=== PATIENT | male | born 1995 | race Caucasian/White ===

== ENCOUNTER 2023-11-11 13:55 | Outpatient (CLI) | payer BC, MEDICAID | END 2023-11-11 23:59 | disposition home or self-care (01) | LOC: RAD 13:55 | PROVIDERS: ATTEND Internal Medicine Infectious Disease | DX: H70.10 Chronic mastoiditis, unspecified ear (principal) | CPT/HCPCS: 70480 ==

== ENCOUNTER 2024-02-15 19:02 | Emergency (ER) | payer BC, MEDICAID ==
[~2024-02-15] VITALS: Ht 185.4 cm; Wt 65.9 kg
[2024-02-15 19:20] VITALS: BP 124/87; PULSE 106; RESP 29; O2SAT 97
[2024-02-15 19:38] LABS: BASOPHILS % (AUTO) 0.2 % (0-1); EOSINOPHILS % (AUTO) 0.2 % (0-6); HEMATOCRIT 32.4 % (42.0-52.0); HEMOGLOBIN 10.4 g/dl (14.0-17.9); LYMPHOCYTES # (AUTO) 3.5 X10'3 (1.1-4.8); LYMPHOCYTES % (AUTO) 24.1 % (21-51); MEAN CORPUSCULAR HEMOGLOBIN 31.8 PG (27.0-31.0); MEAN CORPUSCULAR HGB CONC 32.2 g/dL (33.0-36.5); MEAN PLATELET VOLUME 7.5 FL (7.4-10.4); MONOCYTES # (AUTO) 1.1 X10'3 (0-0.9); MONOCYTES % (AUTO) 7.3 % (2-12); NEUTROPHILS % (AUTO) 68.2 % (42-75); PLATELET COUNT 368 X10'3 (140-440); RED BLOOD COUNT 3.27 X10'6 (4.70-6.10); RED CELL DISTRIBUTION WIDTH 20.2 % (11.5-14.5); WHITE BLOOD COUNT 14.7 X10'3 (4.5-11.0)
[2024-02-15 19:54] LABS: ABG BASE EXCESS 6.8 mmol/L (-2.0-2.0); ABG HCO3 33.5 mmol/L (22.0-26.0); ABG OXYGEN SATURATION 98.9 % (94-97); ABG PCO2 (T) 58.1 mmHg (35.0-48.0); ABG PH (T) 7.377 (7.340-7.440); ABG PO2 (T) 145.1 mmHg (75.0-100.0); ALLEN'S TEST Modified; FCOHb 1.1 % (0.0-3.9); FHHb 1.1 % (0.0-5.0); FMetHb 0.4 % (0.0-1.5); FO2Hb 97.4 % (94-97); MODE CPAP; PATIENT TEMPERATURE 36.9; PEEP 5 cm H2O; TOTAL HEMOGLOBIN 11.3 G/dl (14.0-17.9)
[2024-02-15 19:56] LABS: ALBUMIN 3.4 G/DL (3.4-5.0); ANION GAP 5 (8-16); BLOOD UREA NITROGEN 17 MG/DL (7-18); BUN/CREATININE RATIO 32.7 (10.0-20.0); CALCIUM 10.2 MG/DL (8.5-10.1); CHLORIDE 102 MMOL/L (99-107); CREATININE 0.52 MG/DL (0.60-1.10); GLUCOSE 109 MG/DL (70-104); MAGNESIUM 1.7 MG/DL (1.5-2.4); POTASSIUM 4.4 MMOL/L (3.5-5.1); PRO BRAIN NATRIURETIC PEPTIDE 73 PG/ML (0-125); SODIUM 142 MMOL/L (135-145); TOTAL CARBON DIOXIDE 35.3 MMOL/L (24-32); eCRCL 195 ML/MIN; eGFR > 90 ML/MIN
[2024-02-15] MEDS: CefTRIAXone/D5W-Rocephin 1gm 50 ML IV ONE (20:02)
[2024-02-15] MEDS: normal saline 1000ml 1,000 ML IV ONE (20:05)
[2024-02-15 20:11] LABS: ANISOCYTOSIS 3+; PLATELET ESTIMATE NORMAL; STOMATOCYTES 1+
[2024-02-15] MEDS ORDERED: iohexol 350MG/ML 100ml bottle IV ONE (20:28)
[2024-02-15] MEDS: diazepam inj 5 MG/ML inj. IV ONE (20:37)
[2024-02-15 21:39] VITALS: BP 147/94; PULSE 120; RESP 37; O2SAT 94
[2024-02-15] MEDS: ondansetron/PF 4mg/2ml inj IV ONE (21:47)
[2024-02-15] MEDS: OLANZapine **IM** 10 mg inj. IM ONE (22:32)
[2024-02-15] MEDS: azithromycin/NS 500mg/250ml 250 ML IV ONE (22:41)
[2024-02-15] MEDS: HYDROmorphone inj. 0.5 MG/0.5 ML DISP.SYRIN IV ONE (23:07)
[2024-02-15 23:11] VITALS: BP 103/60; PULSE 122; RESP 28; O2SAT 95
[2024-02-16] MEDS: acetaminophen 1,000mg/100ml IV 100 ML IV ONE (00:06)
[2024-02-16] MEDS: HYDROmorphone 1 mg/ml syringe IV ONE (00:46)
[2024-02-16 01:22] VITALS: BP 103/58; PULSE 115; RESP 24; O2SAT 97
[2024-02-16 03:07] VITALS: PULSE 111; RESP 21; O2SAT 94
[2024-02-16 04:03] VITALS: BP 112/66
[2024-02-16 05:15] VITALS: PULSE 117; RESP 26; TEMP 98.7; O2SAT 93
== END 2024-02-16 05:18 | disposition hospice, inpatient (51) ==
LOC: ER 19:02
DX: J96.00 Acute respiratory failure, unspecified whether with hypoxia or hypercapnia (principal); J18.9 Pneumonia, unspecified organism; Z88.8 Allergy status to other drugs, medicaments and biological substances; Z88.2 Allergy status to sulfonamides
CPT/HCPCS: 36415; 36600; 71045; 71275; 80048; 82803; 83605; 83735; 83880; 84145; 85008; 85018; 85025; 87040; 87070; 93005; 94002; 96365; 96366; 96367; 96372; 96375; 96376; 99291; J0131; J0456; J0696; J1170; J2405; J3360; J3490; J7030; Q9967; 94760; A6213

== ENCOUNTER 2024-03-09 00:40 | Emergency (ER) | payer BC, MEDICAID ==
[2024-03-09] VITALS (11 sets, daily range): BP systolic 99–138; BP diastolic 56–97; PULSE 122–142; RESP 16–21; TEMP 99.4; O2SAT 91–100
[~2024-03-09] VITALS: Ht 185.4 cm; Wt 55.4 kg
[2024-03-09 01:12] LABS: BASOPHILS % (AUTO) 0.1 % (0-1); EOSINOPHILS % (AUTO) 0.1 % (0-6); HEMATOCRIT 36.7 % (42.0-52.0); HEMOGLOBIN 11.7 g/dl (14.0-17.9); LYMPHOCYTES # (AUTO) 0.6 X10'3 (1.1-4.8); LYMPHOCYTES % (AUTO) 3.9 % (21-51); MEAN CORPUSCULAR HEMOGLOBIN 31.5 PG (27.0-31.0); MEAN CORPUSCULAR HGB CONC 31.9 g/dL (33.0-36.5); MEAN CORPUSCULAR VOLUME 98.8 FL (78-98); MEAN PLATELET VOLUME 7.7 FL (7.4-10.4); MONOCYTES # (AUTO) 0.9 X10'3 (0-0.9); MONOCYTES % (AUTO) 6.4 % (2-12); NEUTROPHILS # (AUTO) 13.3 X10'3 (1.8-7.7); NEUTROPHILS % (AUTO) 89.5 % (42-75); PLATELET COUNT 323 X10'3 (140-440); RED BLOOD COUNT 3.71 X10'6 (4.70-6.10); RED CELL DISTRIBUTION WIDTH 16.2 % (11.5-14.5); WHITE BLOOD COUNT 14.8 X10'3 (4.5-11.0)
[2024-03-09 01:20] LABS: ABG HCO3 36.8 mmol/L (22.0-26.0); ABG OXYGEN SATURATION 87.9 % (94-97); ABG PCO2 (T) 58.5 mmHg (35.0-48.0); ABG PH (T) 7.414 (7.340-7.440); ABG PO2 (T) 52.9 mmHg (75.0-100.0); ALLEN'S TEST Modified; FCOHb 0.3 % (0.0-3.9); FHHb 12.1 % (0.0-5.0); FMetHb 0.1 % (0.0-1.5); FO2Hb 87.5 % (94-97); MODE cmv prvc; PATIENT TEMPERATURE 36.4; PEEP 5 cm H2O; RESPIRATORY RATE 16 b/min; TIDAL VOLUME 350 mL; TOTAL HEMOGLOBIN 12.5 G/dl (14.0-17.9)
[2024-03-09 01:34] LABS: ALBUMIN 3.2 G/DL (3.4-5.0); ANION GAP 2 (8-16); BLOOD UREA NITROGEN 19 MG/DL (7-18); BUN/CREATININE RATIO 41.3 (10.0-20.0); CALCIUM 10.6 MG/DL (8.5-10.1); CHLORIDE 98 MMOL/L (99-107); CREATININE 0.46 MG/DL (0.60-1.10); GLUCOSE 165 MG/DL (70-104); MAGNESIUM 1.6 MG/DL (1.5-2.4); PRO BRAIN NATRIURETIC PEPTIDE 65 PG/ML (0-125); SODIUM 143 MMOL/L (135-145); eCRCL 186 ML/MIN; eGFR > 90 ML/MIN
[2024-03-09 01:42] LABS: TOTAL CARBON DIOXIDE 42.9 MMOL/L (24-32)
[2024-03-09] MEDS ORDERED: iohexol 350MG/ML 100ml bottle IV ONE (01:50)
[2024-03-09] MEDS: CefTRIAXone/D5W-Rocephin 1gm 50 ML IV ONE (01:53)
[2024-03-09] MEDS: diazepam inj 5 MG/ML inj. IV ONE ×4 (02:06→16:37)
[2024-03-09] MEDS: azithromycin/NS 500mg/250ml 250 ML IV ONE (02:21)
[2024-03-09 04:14] LABS: ABG BASE EXCESS 10.6 mmol/L (-2.0-2.0); ABG HCO3 38.5 mmol/L (22.0-26.0); ABG OXYGEN SATURATION 98.8 % (94-97); ABG PH (T) 7.369 (7.340-7.440); ABG PO2 (T) 149.2 mmHg (75.0-100.0); ALLEN'S TEST Modified; FCOHb 0.3 % (0.0-3.9); FHHb 1.2 % (0.0-5.0); FMetHb 0.2 % (0.0-1.5); FO2Hb 98.3 % (94-97); MODE CMV PRCV IT 0.9; PATIENT TEMPERATURE 36.6; PEEP 8 cm H2O; RESPIRATORY RATE 18 b/min; TIDAL VOLUME 350 mL; TOTAL HEMOGLOBIN 12.2 G/dl (14.0-17.9)
[2024-03-09] MEDS: normal saline 1000ml 1,000 ML IV ONE (05:25)
[2024-03-09] MEDS: acetaminophen 1,000mg/100ml IV 100 ML IV SCH (06:27)
[2024-03-09] MEDS: ketorolac tromethamine 15mg/ml inj. IV ONE (08:17)
[2024-03-09] MEDS: normal saline 1000ML IV soln IVB ONE (08:17)
[2024-03-09] MEDS: vancomycin/NS 1 GM ADD-VANTAGE 250 ML IV ONE (10:06)
[2024-03-09] MEDS: HYDROmorphone 1 mg/ml syringe IV ONE ×3 (10:07→16:37)
[2024-03-09 15:31] LABS: BILIRUBIN,URINE SMALL (Neg); CLARITY,URINE CLEAR (Clear); COLOR,URINE YELLOW (Yellow); GLUCOSE, URINE NEGATIVE (Neg); KETONES,URINE NEGATIVE (Neg); LEUKOCYTE ESTERASE ,URINE TRACE (Neg); NITRITES, URINE NEGATIVE (Neg); OCCULT BLOOD,URINE NEGATIVE (Neg); PROTEIN,URINE TRACE mg/dl (Neg); UROBILINOGEN,URINE 0.2 E.U/dL (0.2-1.0)
[2024-03-09 15:33] LABS: UA COLLECTION TYPE NON-SPECIFIED
[2024-03-09 15:52] LABS: BACTERIA,URINE 2+ /HPF (Neg); MUCUS STRANDS MODERATE /LPF (Neg); SQUAMOUS EPITHELIAL CELL,UR FEW /LPF (FEW)
== END 2024-03-09 17:03 | disposition short-term general hospital (02) ==
LOC: ER 00:41
DX: A41.9 Sepsis, unspecified organism (principal); Z20.822 Contact with and (suspected) exposure to COVID-19; J15.8 Pneumonia due to other specified bacteria; Z88.8 Allergy status to other drugs, medicaments and biological substances; Z98.890 Other specified postprocedural states
CPT/HCPCS: 36415; 36600; 71045; 80048; 81001; 82803; 82948; 83605; 83735; 83880; 84145; 84484; 85018; 85025; 87040; 87070; 87077; 87088; 87186; 87811; 93005; 94002; 96361; 96365; 96367; 96375; 96376; 99291; 99292; J0131; J0456; J0696; J1170; J1885; J3360; J3370; J7030; 94760; 96366; 96368; A6590; Q9967

== ENCOUNTER 2024-04-01 16:40 | Inpatient (IN) | payer BC, MEDICAID ==
[~2024-04-01] VITALS: Ht 190.5 cm; Wt 52.1 kg
[2024-04-01] MEDS ORDERED: metroNIDAZOLE-Flagyl 750mg/NS 150 ML IV STA (16:49)
[2024-04-01] MEDS ORDERED: cefepime 2g/NS 100ml ADVANTAGE 100 ML IV ONE (16:50)
[2024-04-01 17:09] LABS: BASOPHILS % (AUTO) 0.1 % (0-1); EOSINOPHILS % (AUTO) 0.1 % (0-6); HEMATOCRIT 31.8 % (42.0-52.0); HEMOGLOBIN 10.4 g/dl (14.0-17.9); LYMPHOCYTES # (AUTO) 0.6 X10'3 (1.1-4.8); LYMPHOCYTES % (AUTO) 5.8 % (21-51); MEAN CORPUSCULAR HGB CONC 32.7 g/dL (33.0-36.5); MEAN CORPUSCULAR VOLUME 94.8 FL (78-98); MEAN PLATELET VOLUME 8.1 FL (7.4-10.4); MONOCYTES # (AUTO) 0.6 X10'3 (0-0.9); MONOCYTES % (AUTO) 6.2 % (2-12); NEUTROPHILS # (AUTO) 8.6 X10'3 (1.8-7.7); NEUTROPHILS % (AUTO) 87.8 % (42-75); PLATELET COUNT 213 X10'3 (140-440); RED BLOOD COUNT 3.36 X10'6 (4.70-6.10); RED CELL DISTRIBUTION WIDTH 15.3 % (11.5-14.5); WHITE BLOOD COUNT 9.7 X10'3 (4.5-11.0)
[2024-04-01 17:13] VITALS: BP 100/69; PULSE 109; RESP 20; O2SAT 94
[2024-04-01 17:19] LABS: ALBUMIN 2.8 G/DL (3.4-5.0); BLOOD UREA NITROGEN 9 MG/DL (7-18); BUN/CREATININE RATIO 19.6 (10.0-20.0); CALCIUM 10.6 MG/DL (8.5-10.1); CHLORIDE 94 MMOL/L (99-107); CREATININE 0.46 MG/DL (0.60-1.10); GLUCOSE 265 MG/DL (70-104); SODIUM 139 MMOL/L (135-145); eCRCL 173 ML/MIN; eGFR > 90 ML/MIN
[2024-04-01 17:26] LABS: ABG BASE EXCESS 18.6 mmol/L (-2.0-2.0); ABG HCO3 48.2 mmol/L (22.0-26.0); ABG OXYGEN SATURATION 94.8 % (92-98.5); ABG PCO2 (T) 88.8 mmHg (35.0-48.0); ABG PO2 (T) 75.6 mmHg (75.0-100.0); ALLEN'S TEST POSITIVE; FCOHb 0.3 % (0.5-1.5); FHHb 5.2 % (0.0-5.0); FMetHb 0.1 % (0.0-1.5); FO2Hb 94.4 % (94-97); MODE VENT - PRVC; PATIENT TEMPERATURE 36.4; PEEP 5 cm H2O; RESPIRATORY RATE 18 b/min; TIDAL VOLUME 350 mL
[2024-04-01] MEDS: [UNRECOGNIZED DRUG - OTHER] IV ONE (17:31)
[2024-04-01] MEDS: METRONIDAZOLE FLAGYL IV ONE (17:31)
[2024-04-01] MEDS: normal saline 1000ML IV soln IVB ONE (17:31)
[2024-04-01] MEDS: vancomycin/NS 1 GM ADD-VANTAGE 250 ML IV ONE (17:32)
[2024-04-01 18:22] LABS: BILIRUBIN,URINE NEGATIVE (Neg); CLARITY,URINE SLIGHTLY CLOUDY (Clear); COLOR,URINE YELLOW (Yellow); GLUCOSE, URINE NEGATIVE (Neg); KETONES,URINE NEGATIVE (Neg); LEUKOCYTE ESTERASE ,URINE NEGATIVE (Neg); NITRITES, URINE NEGATIVE (Neg); OCCULT BLOOD,URINE SMALL (Neg); PROTEIN,URINE 100 mg/dl (Neg); UROBILINOGEN,URINE 0.2 E.U/dL (0.2-1.0)
[2024-04-01 18:24] LABS: ANION GAP 0 (8-16)
[2024-04-01 18:24] LABS: UA COLLECTION TYPE FOLEY CATH
[2024-04-01 18:29] LABS: COARSE GRANULAR CAST 0-3 /LPF (NEGATIVE)
[2024-04-01 18:30] LABS: RBC,URINE 20-50 /HPF (0-2); SQUAMOUS EPITHELIAL CELL,UR NONE SEEN /LPF (FEW)
[2024-04-01 18:31] LABS: BACTERIA,URINE FEW /HPF (Neg)
[2024-04-01 18:34] LABS: TOTAL CARBON DIOXIDE 45.2 MMOL/L (24-32)
[2024-04-01] MEDS: NORMAL SALINE IV ONE (19:36)
[2024-04-01] MEDS: CEFTAZIDIME IV ONE (19:36)
[2024-04-01] MEDS: AVIBACTAM IV ONE (19:36)
[2024-04-01 19:40] VITALS: BP 102/64; PULSE 119; RESP 22; O2SAT 98
[2024-04-01] MEDS: acetaminophen 1,000mg/100ml IV 100 ML IV ONE (21:13)
[2024-04-01 21:19] VITALS: BP 99/66; PULSE 134; RESP 23; O2SAT 98
[2024-04-01] MEDS: ketorolac trometh. 30mg/ml inj. IV ONE (21:44)
[2024-04-01] MEDS: ringers solution, lactated 1000ml IV soln IV ONE (22:19)
[2024-04-01 23:30] VITALS: BP 115/75; PULSE 120; RESP 22; O2SAT 99
[2024-04-01] MEDS: dexamethasone sod phosphate 10mg/ml inj IV STA (23:57)
[2024-04-02] VITALS (22 sets, daily range): BP systolic 99–132; BP diastolic 65–86; PULSE 100–139; RESP 22–36; O2SAT 95–100
[2024-04-02] MEDS: vancomycin/NS 1 GM ADD-VANTAGE 250 ML IV SCH (01:48)
[2024-04-02] MEDS ORDERED: NORMAL SALINE IV SCH ×2 (02:00)
[2024-04-02] MEDS ORDERED: CEFTAZIDIME IV SCH ×2 (02:00)
[2024-04-02] MEDS ORDERED: AVIBACTAM IV SCH ×2 (02:00)
[2024-04-02] MEDS: NORMAL SALINE IV SCH (03:28)
[2024-04-02] MEDS: CEFTAZIDIME IV SCH (03:28)
[2024-04-02] MEDS: AVIBACTAM IV SCH (03:28)
[2024-04-02] MEDS: acetaminophen 1,000mg/100ml IV 100 ML IV ONE (03:29)
[2024-04-02] MEDS ORDERED: HYDROmorphone 2mg tablet PO PRN (06:40)
[2024-04-02] MEDS: HYDROmorphone 2mg tablet NG PRN (07:20)
[2024-04-02] MEDS: ringers solution, lactated 500ml IV solution IV SCH (07:21)
[2024-04-02] MEDS: ringers solution, lacted 1,000 ML IV SCH (08:36)
[2024-04-02] MEDS ORDERED: PRE1T NG (09:08)
[2024-04-02] MEDS ORDERED: [UNRECOGNIZED DRUG - CODE] PO (09:08)
[2024-04-02] MEDS ORDERED: GRAN1TAB PO (09:08)
[2024-04-02] MEDS ORDERED: ACYC-126 PO (09:08)
[2024-04-02] MEDS ORDERED: FLUT12AE22 (09:08)
[2024-04-02] MEDS ORDERED: OLAN5TAB75 PO (09:08)
[2024-04-02] MEDS ORDERED: MIRT-87 PO (09:08)
[2024-04-02] MEDS ORDERED: BUPR2TAB11 NG (09:08)
[2024-04-02] MEDS ORDERED: ISAV186C2 PO (09:08)
[2024-04-02] MEDS ORDERED: TEST2.5G10 (09:08)
[2024-04-02] MEDS ORDERED: DICL100G59 TOP (09:08)
[2024-04-02] MEDS ORDERED: FLO0.4C (09:08)
[2024-04-02] MEDS ORDERED: RISP0.5T80 NG (09:20)
[2024-04-02] MEDS ORDERED: ESCI20TA39 NG (09:20)
[2024-04-02] MEDS ORDERED: SUMA100T16 NG (09:20)
[2024-04-02] MEDS ORDERED: LANS30CA56 NG (09:20)
[2024-04-02] MEDS ORDERED: ATR0.5NEB NEB (09:20)
[2024-04-02] MEDS ORDERED: PREG150C47 NG (09:20)
[2024-04-02] MEDS ORDERED: HYDR2TAB7 NG (09:20)
[2024-04-02] MEDS ORDERED: LORA-268 NG (09:20)
[2024-04-02] MEDS ORDERED: FENO145T25 NG (09:20)
[2024-04-02] MEDS ORDERED: FOLI1TAB27 NG (09:20)
[2024-04-02] MEDS ORDERED: BACL20TA NG (09:20)
[2024-04-02] MEDS ORDERED: SODI4VIA33 NEB (09:20)
[2024-04-02] MEDS ORDERED: MEGE40TA5 NG (09:20)
[2024-04-02] MEDS ORDERED: METO-395 PO (09:20)
[2024-04-02] MEDS ORDERED: AZIT-164 PO (09:20)
[2024-04-02] MEDS ORDERED: ACET100V5 NEB (09:25)
[2024-04-02] MEDS ORDERED: enoxaparin 30mg/0.3ml syringe SUBCUT SCH (09:50)
[2024-04-02] MEDS ORDERED: LIDO700A47 TOP (10:27)
[2024-04-02] MEDS ORDERED: baclofen 10mg tablet PO PRN (10:30)
[2024-04-02] MEDS: LIDOcaine 5% patch TP SCH (10:49)
[2024-04-02] MEDS ORDERED: predniSONE 1 mg tablet NG SCH (11:07)
[2024-04-02] MEDS ORDERED: IPRA3AMP9 NEB (11:17)
[2024-04-02] MEDS: acetylcysteine 200 MG/ml 4ml vial INH SCH (11:32)
[2024-04-02] MEDS: ipratropium/albuterol 3ml nebule NEB SCH (11:32)
[2024-04-02] MEDS: enoxaparin 40mg/0.4ml syringe SUBCUT SCH (11:33)
[2024-04-02] MEDS: predniSONE 1 mg tablet NG SCH (11:33)
[2024-04-02] MEDS: OLANZAPINE 5 MG TABLET PO SCH (11:34)
[2024-04-02] MEDS: fenofibrate 145mg tablet NG SCH (11:34)
[2024-04-02] MEDS: metoprolol succinate 25mg (24-HOUR) SR. Tablet PO SCH (11:35)
[2024-04-02] MEDS: acetaminophen 325mg tablet PO ONE (11:35)
[2024-04-02] MEDS: lactobacillus rhamnosus 10,000 MMU CELLS/CAPSULE PO SCH (11:35)
[2024-04-02] MEDS: risperiDONE 0.5mg tablet NG SCH (11:57)
[2024-04-02] MEDS: LORazepam 0.5 MG tablet NG PRN (12:43)
[2024-04-02] MEDS: baclofen 10mg tablet PO PRN (15:40)
[2024-04-02] MEDS: VANCOMYCIN LEVEL IV ONE (17:49)
[2024-04-02] MEDS: BUPRENORPHINE HCL 4 MG NG SCH (18:06)
[2024-04-02] MEDS: ketorolac trometh. 30mg/ml inj. IV ONE (21:59)
[2024-04-02] MEDS ORDERED: magnesium sulf-water 2g/50mL 50 ML IV PRN (22:15)
[2024-04-02] MEDS ORDERED: magnesium sulf-water 4G/100mL 100 ML IV PRN (22:15)
[2024-04-02] MEDS ORDERED: potassium Cl 40MEQ/1/2NS 520ml 520 ML IV PRN (22:15)
[2024-04-03] VITALS (12 sets, daily range): BP systolic 97–113; BP diastolic 62–83; PULSE 85–116; RESP 22–64; TEMP 99.8; O2SAT 95–100
[2024-04-03] MEDS: VANCOmycin 1250MG/NS 250ml Bag 250 ML IV SCH ×2 (01:17→09:32)
[2024-04-03 04:19] LABS: ALBUMIN 1.9 G/DL (3.4-5.0); ANION GAP 1 (8-16); BLOOD UREA NITROGEN 11 MG/DL (7-18); BUN/CREATININE RATIO 39.3 (10.0-20.0); CALCIUM 9.3 MG/DL (8.5-10.1); CHLORIDE 104 MMOL/L (99-107); CREATININE 0.28 MG/DL (0.60-1.10); GLUCOSE 110 MG/DL (70-104); MAGNESIUM 1.3 MG/DL (1.5-2.4); POTASSIUM 3.4 MMOL/L (3.5-5.1); SODIUM 141 MMOL/L (135-145); eCRCL 284 ML/MIN; eGFR > 90 ML/MIN
[2024-04-03 06:11] LABS: HEMATOCRIT 22.5 % (43.5-53.7); HEMOGLOBIN 7.5 G/DL (12.5-16.3); RED BLOOD COUNT 2.39 X10'6 (4.30-5.90); WHITE BLOOD COUNT 4.4 X10'3 (4.5-11.0)
[2024-04-03 06:12] LABS: BASOPHILS % 0 % (0-2); EOSINOPHILS % (AUTO) 0 % (0-5); LYMPHOCYTES % 23 % (24-44); MEAN CORPUSCULAR HEMOGLOBIN 31.1 PG (27-31.2); MEAN CORPUSCULAR VOLUME 94.2 FL (81-97); MONOCYTES # (AUTO) 0.5 X10'3 (0-0.9); MONOCYTES % 11 % (0-12); NEUTROPHILS # (AUTO) 2.9 X10'3 (>=1.4); PLATELET COUNT 160 X10'3 (130-400); SEGMENTED NEUTROPHILS % 66 % (36-66)
[2024-04-03] MEDS: ondansetron 4mg rapidly disintigrating tab PO PRN (07:12)
[2024-04-03] MEDS: predniSONE 1 mg tablet NG ONE (11:28)
[2024-04-03] MEDS ORDERED: acetylcysteine 200 MG/ml 4ml vial PO SCH (14:00)
[2024-04-03] MEDS ORDERED: ipratropium/albuterol 3ml nebule NEB SCH (15:00)
[2024-04-04] MEDS ORDERED: VANCOMYCIN LEVEL IV ONE (00:30)
== END 2024-04-03 15:28 | disposition home or self-care (01) | DRG 871 ==
LOC: ER 16:41 → ED HOLD 04-02 22:22
PROVIDERS: ADMIT Internal Medicine Critical Care Medicine; ATTEND Internal Medicine Critical Care Medicine
PROC: 5A1935Z Respiratory Ventilation, Less than 24 Consecutive Hours (ICD-10-PCS; principal; 2024-04-02)
DX: A41.52 Sepsis due to Pseudomonas (principal); J15.1 Pneumonia due to Pseudomonas; J96.21 Acute and chronic respiratory failure with hypoxia; J95.851 Ventilator associated pneumonia; D84.9 Immunodeficiency, unspecified; Z20.822 Contact with and (suspected) exposure to COVID-19; Z99.11 Dependence on respirator [ventilator] status; Z22.39 Carrier of other specified bacterial diseases; Z79.52 Long term (current) use of systemic steroids; Z85.6 Personal history of leukemia; Z88.2 Allergy status to sulfonamides; Z88.3 Allergy status to other anti-infective agents; Z93.0 Tracheostomy status; Z88.8 Allergy status to other drugs, medicaments and biological substances
CPT/HCPCS: 36415; 36600; 71045; 80048; 80202; 81001; 82803; 82948; 83605; 83735; 84145; 85018; 85025; 87040; 87070; 87077; 87081; 87088; 87186; 87502; 87503; 87811; 93005; 94002; 94003; 94640; 94760; 99285; 99291; A4615; A4623; A4624; A6212; A6213; A6402; A6449; A7015; G0378; J0131; J1100; J1650; J1885; J3370; J3490; J7030; J7040; J7120; J7512

== ENCOUNTER 2024-07-05 05:14 | Inpatient (IN) | payer BC, MEDICAID ==
[~2024-07-05] VITALS: Ht 185.4 cm; Wt 50.5 kg
[2024-07-05] VITALS (19 sets, daily range): BP systolic 88–134; BP diastolic 42–80; PULSE 117–147; RESP 18–32; O2SAT 93–99
[~2024-07-05 05:14] MED LIST: ACET100V5 NEB; ACYC-126 PO; AZIT-164 PO; BACL20TA PO; BUPR2TAB11 PO; DICL100G59 TOP; ESCI20TA39 PO; FENO145T25 PO; FLO0.4C PO; FLUT12AE22 NS; FOLI1TAB27 PO; GRAN1TAB PO; HYDR2TAB7 NG; IPRA3AMP9 NEB; ISAV186C2 PO; LANS30CA56 PO; LIDO700A47 TOP; LORA-268 PO; MEGE40TA5 PO; METO-395 PO; MIRT-87 PO; OLAN5TAB75 PO; PRE1T PO; PREG150C47 PO; RISP0.5T80 PO; SODI4VIA33 NEB; SUMA100T16 PO; TEST2.5G10 TOP; [UNRECOGNIZED DRUG - CODE] PO
[2024-07-05] MEDS: LORazepam 2 mg/ml vial IV ONE ×3 (05:37→14:11)
[2024-07-05 06:11] LABS: BASOPHILS % (AUTO) 0.3 % (0-1); EOSINOPHILS % (AUTO) 0.1 % (0-6); HEMATOCRIT 28.7 % (42.0-52.0); HEMOGLOBIN 9.2 g/dl (14.0-17.9); LYMPHOCYTES # (AUTO) 0.7 X10'3 (1.1-4.8); LYMPHOCYTES % (AUTO) 4.8 % (21-51); MEAN CORPUSCULAR HEMOGLOBIN 30.2 PG (27.0-31.0); MEAN CORPUSCULAR VOLUME 94.4 FL (78-98); MEAN PLATELET VOLUME 7.7 FL (7.4-10.4); MONOCYTES # (AUTO) 1.1 X10'3 (0-0.9); MONOCYTES % (AUTO) 7.7 % (2-12); NEUTROPHILS # (AUTO) 12.6 X10'3 (1.8-7.7); NEUTROPHILS % (AUTO) 87.1 % (42-75); PLATELET COUNT 359 X10'3 (140-440); RED BLOOD COUNT 3.04 X10'6 (4.70-6.10); RED CELL DISTRIBUTION WIDTH 17.4 % (11.5-14.5); WHITE BLOOD COUNT 14.5 X10'3 (4.5-11.0)
[2024-07-05 06:23] LABS: ALANINE AMINOTRANSFERASE 15 U/L (12-78); ALBUMIN 2.8 G/DL (3.4-5.0); ALBUMIN/GLOBULIN RATIO 0.5 (1.1-1.5); ALKALINE PHOSPHATASE 156 IU/L (46-116); ANION GAP 13 (8-16); ASPARTATE AMINO TRANSFERASE 11 U/L (10-37); BILIRUBIN,TOTAL 0.7 MG/DL (0.1-1.0); BLOOD UREA NITROGEN 5 MG/DL (7-18); BUN/CREATININE RATIO 8.6 (10.0-20.0); CALCIUM 10.6 MG/DL (8.5-10.1); CHLORIDE 105 MMOL/L (99-107); CREATININE 0.58 MG/DL (0.60-1.10); GLUCOSE 125 MG/DL (70-104); POTASSIUM 3.3 MMOL/L (3.5-5.1); SODIUM 146 MMOL/L (135-145); TOTAL CARBON DIOXIDE 27.6 MMOL/L (24-32); eCRCL 150 ML/MIN; eGFR > 90 ML/MIN
[2024-07-05] MEDS: morphine 4 MG/ML inj SYRINge IV ONE (06:24)
[2024-07-05 06:31] LABS: PRO BRAIN NATRIURETIC PEPTIDE 470 PG/ML (0-125)
[2024-07-05] MEDS ORDERED: normal saline 500ml IV soln 500 ML IV SCH (06:55)
[2024-07-05 07:42] LABS: BILIRUBIN,URINE NEGATIVE (Neg); CLARITY,URINE CLOUDY (Clear); COLOR,URINE YELLOW (Yellow); GLUCOSE, URINE NEGATIVE (Neg); KETONES,URINE TRACE mg/dl (Neg); LEUKOCYTE ESTERASE ,URINE TRACE (Neg); NITRITES, URINE POSITIVE (Neg); OCCULT BLOOD,URINE LARGE (Neg); PROTEIN,URINE 100 mg/dl (Neg); UROBILINOGEN,URINE 0.2 E.U/dL (0.2-1.0)
[2024-07-05 07:51] LABS: UA COLLECTION TYPE STRAIGHT CATH
[2024-07-05] MEDS: normal saline 1000ml 1,000 ML IV ONE (07:52)
[2024-07-05] MEDS: cefTAZidime inj 2 GM in normal saline 100ml IV soln 100 ML IV SCH (07:52)
[2024-07-05 07:53] LABS: BACTERIA,URINE 4+ /HPF (Neg); RBC,URINE TNTC /HPF (0-2); WBC,URINE TNTC /HPF (0-4)
[2024-07-05 07:54] LABS: MUCUS STRANDS NONE SEEN /LPF (Neg); SQUAMOUS EPITHELIAL CELL,UR NONE SEEN /LPF (FEW)
[2024-07-05 08:08] LABS: D-DIMER 2.46 MG/L FEU (0-0.50)
[2024-07-05] MEDS ORDERED: iohexol 350MG/ML 100ml bottle IV ONE (08:15)
[2024-07-05] MEDS: VANCOMYCIN/WATER FOR INJ (PEG) 1.5GM/300 ML IVPB IV ONE (09:05)
[2024-07-05] MEDS ORDERED: MEROPENEM 1GM/NS 100ML IVPB 100 ML IV SCH (10:40)
[2024-07-05] MEDS: TOBRAMYCIN IV SCH (11:19)
[2024-07-05] MEDS: NORMAL SALINE IV SCH (11:19)
[2024-07-05] MEDS ORDERED: acetaminophen 325mg tablet PO PRN ×2 (11:35)
[2024-07-05] MEDS ORDERED: OXYC10TA47 PO (13:49)
[2024-07-05] MEDS ORDERED: BUSP10TA3 PO (13:53)
[2024-07-05] MEDS ORDERED: SUMAtriptan 25 MG tablet PO PRN (14:45)
[2024-07-05] MEDS: normal saline 1000ml 1,000 ML IV SCH (15:35)
[2024-07-05] MEDS: oxyCODONE IR 5mg (immed. release) tablet PO SCH (16:00)
[2024-07-05] MEDS: MEROPENEM 1GM/NACL 50ML IVPB 50 ML IV SCH (16:34)
[2024-07-05] MEDS: morphine 2 MG/ML inj. syringe IV PRN (16:35)
[2024-07-05] MEDS ORDERED: DAPS100T2 PO (17:30)
[2024-07-05] MEDS ORDERED: BUDE0.5A3 NEB (17:30)
[2024-07-05] MEDS ORDERED: OLAN10TA73 PO (17:30)
[2024-07-05] MEDS ORDERED: CELE-148 PO (17:30)
[2024-07-05] MEDS ORDERED: MONT-40 PO (17:30)
[2024-07-05] MEDS: morphine 4 MG/ML inj SYRINge IV PRN (19:04)
[2024-07-05] MEDS: ondansetron/PF 4mg/2ml inj IV PRN (19:04)
[2024-07-05] MEDS: dexmedetomidin/NS 400mcg/100ml 100 ML IV PRN (19:59)
[2024-07-05] MEDS: acetaminophen 1,000mg/100ml IV 100 ML IV PRN (19:59)
[2024-07-05] MEDS: risperiDONE 0.5mg tablet PO SCH (20:00)
[2024-07-05] MEDS: BUPRENORPHINE HCL 4 MG PO SCH (20:00)
[2024-07-05] MEDS: ipratropium/albuterol 3ml nebule NEB SCH (20:47)
[2024-07-05] MEDS: acetylcysteine 200 MG/ml 4ml vial INH SCH (20:47)
[2024-07-05] MEDS: busPIRone 5mg tablet PO SCH (22:13)
[2024-07-05] MEDS: ESCITALOPRAM 10 mg tablet 10 MG TABLET PO SCH (22:13)
[2024-07-05] MEDS: OLANZAPINE 5 MG TABLET PO SCH (22:14)
[2024-07-05] MEDS: mirtazapine 15mg tablet PO SCH (22:14)
[2024-07-05] MEDS: pregabalin 75mg capsule PO SCH (22:30)
[2024-07-05] MEDS: pantoprazole 40mg Tablet.DR PO SCH (22:31)
[2024-07-05] MEDS: baclofen 10mg tablet PO SCH (22:31)
[2024-07-05] MEDS: tPA-cathflo 2mg/2ml IV flush 2 MG/2 ML VIAL IVF ONE (23:52)
[2024-07-06] VITALS (49 sets, daily range): BP systolic 84–130; BP diastolic 42–72; PULSE 88–132; RESP 15–33; O2SAT 88–100
[2024-07-06] MEDS: heparin, porcine 5000 units/ml vial SQ SCH (01:46)
[2024-07-06 03:26] LABS: ABG OXYGEN SATURATION 93.1 % (94.0-98.0); ABG PCO2 (T) 63.4 mmHg (35.0-48.0); ABG PO2 (T) 78.3 mmHg (83.0-108.0); ALLEN'S TEST Modified; FCOHb 0.9 % (0.5-1.5); FHHb 6.8 % (0.0-5.0); FMetHb 0.3 % (0.0-1.5); MODE PRVC; PATIENT TEMPERATURE 36.8; PEEP 5 cm H2O; RESPIRATORY RATE 16 b/min; TIDAL VOLUME 350 mL; TOTAL HEMOGLOBIN 8.8 G/dl (13.5-17.5)
[2024-07-06 03:59] LABS: BASOPHILS % (AUTO) 0.5 % (0-1); EOSINOPHILS % (AUTO) 0.1 % (0-6); HEMOGLOBIN 7.9 g/dl (14.0-17.9); LYMPHOCYTES # (AUTO) 0.5 X10'3 (1.1-4.8); MEAN CORPUSCULAR HEMOGLOBIN 30.2 PG (27.0-31.0); MEAN CORPUSCULAR HGB CONC 31.7 g/dL (33.0-36.5); MEAN CORPUSCULAR VOLUME 95.2 FL (78-98); MEAN PLATELET VOLUME 7.6 FL (7.4-10.4); MONOCYTES # (AUTO) 0.5 X10'3 (0-0.9); MONOCYTES % (AUTO) 5.3 % (2-12); NEUTROPHILS # (AUTO) 8.5 X10'3 (1.8-7.7); NEUTROPHILS % (AUTO) 89.1 % (42-75); PLATELET COUNT 278 X10'3 (140-440); RED BLOOD COUNT 2.63 X10'6 (4.70-6.10); RED CELL DISTRIBUTION WIDTH 17.3 % (11.5-14.5); WHITE BLOOD COUNT 9.6 X10'3 (4.5-11.0)
[2024-07-06 04:10] LABS: APTT 31 SECONDS (22-32); INR 1.4 INR
[2024-07-06 04:13] LABS: ALANINE AMINOTRANSFERASE 11 U/L (12-78); ALBUMIN 2.2 G/DL (3.4-5.0); ALBUMIN/GLOBULIN RATIO 0.5 (1.1-1.5); ALKALINE PHOSPHATASE 118 IU/L (46-116); ANION GAP 11 (8-16); ASPARTATE AMINO TRANSFERASE 16 U/L (10-37); BILIRUBIN,TOTAL 0.4 MG/DL (0.1-1.0); BLOOD UREA NITROGEN 4 MG/DL (7-18); BUN/CREATININE RATIO 7.3 (10.0-20.0); CALCIUM 9.6 MG/DL (8.5-10.1); CHLORIDE 109 MMOL/L (99-107); CREATININE 0.55 MG/DL (0.60-1.10); GLUCOSE 83 MG/DL (70-104); MAGNESIUM 1.3 MG/DL (1.5-2.4); PHOSPHORUS 4.1 MG/DL (2.3-4.5); POTASSIUM 3.2 MMOL/L (3.5-5.1); SODIUM 148 MMOL/L (135-145); TOTAL CARBON DIOXIDE 27.8 MMOL/L (24-32); TOTAL PROTEIN 6.4 G/DL (6.4-8.2); eCRCL 158 ML/MIN; eGFR > 90 ML/MIN
[2024-07-06] MEDS ORDERED: potassium phosphate inj 30 MMOL in normal saline 250ml IV soln 250 ML IV ONE (06:50)
[2024-07-06] MEDS ORDERED: ISAVUCONAZONIUM SULFATE PO SCH (08:00)
[2024-07-06] MEDS: testosterone 5gm gel packet TD SCH (08:00)
[2024-07-06] MEDS ORDERED: metoprolol succinate 25mg (24-HOUR) SR. Tablet PO SCH (08:00)
[2024-07-06] MEDS: tamsulosin 0.4mg capsule PO SCH (08:00)
[2024-07-06] MEDS ORDERED: dextrose 5%-water 1,000 ML IV SCH (08:10)
[2024-07-06] MEDS ORDERED: potassium Cl 20 mEq SR tablet PO PRN ×2 (08:15)
[2024-07-06] MEDS ORDERED: magnesium sulf-water 4G/100mL 100 ML IV PRN (08:15)
[2024-07-06] MEDS: predniSONE 5mg tablet PO SCH (08:21)
[2024-07-06] MEDS: folic acid 1mg tablet PO SCH (08:21)
[2024-07-06] MEDS: fenofibrate 145mg tablet PO SCH (08:21)
[2024-07-06] MEDS: K and/or MAG REPLACEMENT MC SCH (08:55)
[2024-07-06] MEDS: potassium phosphate inj 30 MMOL in normal saline 500ml IV soln 500 ML IV ONE (09:06)
[2024-07-06] MEDS ORDERED: POTASSIUM CHLORIDE 20 MEQ/15 ML oral solution PO PRN (09:10)
[2024-07-06] MEDS ORDERED: metoprolol tartrate 50mg tablet PO SCH (09:20)
[2024-07-06] MEDS: magnesium sulf-water 2g/50mL 50 ML IV PRN (09:35)
[2024-07-06] MEDS: POTASSIUM CHLORIDE 20 MEQ/15 ML oral solution PO PRN (09:35)
[2024-07-06] MEDS: LIDOcaine 5% patch TP SCH (09:47)
[2024-07-06] MEDS: ringers solution, lacted 1,000 ML IV ONE (10:34)
[2024-07-06 10:52] LABS: PREALBUMIN 8.6 MG/DL (19-36)
[2024-07-06] MEDS: NORepinephrine 8mg/ 250ml NS 250 ML IV SCH (13:47)
[2024-07-06] MEDS: NORepinephrine 8mg/ 250ml NS 250 ML IV ONE (13:56)
[2024-07-06] MEDS: VANCOMYCIN 1GM 200ML H20 (PEG) 200 ML IV SCH (16:13)
[2024-07-06] MEDS: ARGININE/GLUTAMINE/CALCIUM BMB (JUVEN 19.3GM PKT) 1 EACH POWD.PACK PO SCH (20:00)
[2024-07-06] MEDS: metoprolol tartrate 25mg tablet PO SCH (20:00)
[2024-07-06] MEDS: risperiDONE 0.5mg tablet PO SCH (20:33)
[2024-07-07] VITALS (40 sets, daily range): BP systolic 72–122; BP diastolic 47–85; PULSE 77–126; RESP 15–28; TEMP 97–99.3; O2SAT 93–99
[2024-07-07 03:50] LABS: BASOPHILS % (AUTO) 0.2 % (0-1); EOSINOPHILS % (AUTO) 0.4 % (0-6); LYMPHOCYTES # (AUTO) 0.8 X10'3 (1.1-4.8); LYMPHOCYTES % (AUTO) 12.7 % (21-51); MEAN CORPUSCULAR HEMOGLOBIN 30.3 PG (27.0-31.0); MEAN CORPUSCULAR HGB CONC 32.4 g/dL (33.0-36.5); MEAN CORPUSCULAR VOLUME 93.4 FL (78-98); MEAN PLATELET VOLUME 7.3 FL (7.4-10.4); MONOCYTES # (AUTO) 0.4 X10'3 (0-0.9); MONOCYTES % (AUTO) 6.7 % (2-12); NEUTROPHILS # (AUTO) 4.8 X10'3 (1.8-7.7); PLATELET COUNT 243 X10'3 (140-440); RED BLOOD COUNT 2.31 X10'6 (4.70-6.10); RED CELL DISTRIBUTION WIDTH 17.1 % (11.5-14.5); WHITE BLOOD COUNT 6.1 X10'3 (4.5-11.0)
[2024-07-07 03:55] LABS: HEMATOCRIT 21.6 % (42.0-52.0)
[2024-07-07 04:03] LABS: APTT 36 SECONDS (22-32); INR 1.2 INR
[2024-07-07 04:06] LABS: ALANINE AMINOTRANSFERASE 12 U/L (12-78); ALBUMIN 1.9 G/DL (3.4-5.0); ALBUMIN/GLOBULIN RATIO 0.5 (1.1-1.5); ALKALINE PHOSPHATASE 134 IU/L (46-116); ANION GAP 5 (8-16); ASPARTATE AMINO TRANSFERASE 15 U/L (10-37); BILIRUBIN,TOTAL 0.3 MG/DL (0.1-1.0); BLOOD UREA NITROGEN 2 MG/DL (7-18); CALCIUM 9.1 MG/DL (8.5-10.1); CHLORIDE 105 MMOL/L (99-107); GLUCOSE 101 MG/DL (70-104); MAGNESIUM 1.4 MG/DL (1.5-2.4); PHOSPHORUS 3.8 MG/DL (2.3-4.5); POTASSIUM 3.2 MMOL/L (3.5-5.1); PREALBUMIN 6.3 MG/DL (19-36); SODIUM 144 MMOL/L (135-145); TOTAL CARBON DIOXIDE 34.3 MMOL/L (24-32); eCRCL 174 ML/MIN; eGFR > 90 ML/MIN
[2024-07-07 04:41] LABS: ABG BASE EXCESS 7.6 mmol/L (-2.0-3.0); ABG OXYGEN SATURATION 98.4 % (94.0-98.0); ABG PCO2 (T) 54.7 mmHg (35.0-48.0); ABG PH (T) 7.403 (7.350-7.450); ABG PO2 (T) 113.9 mmHg (83.0-108.0); ALLEN'S TEST Modified; FCOHb 0.9 % (0.5-1.5); FHHb 1.6 % (0.0-5.0); FMetHb 0.3 % (0.0-1.5); FO2Hb 97.2 % (94.0-98.0); MODE VENT - PRVC; PATIENT TEMPERATURE 37.9; PEEP 5 cm H2O; RESPIRATORY RATE 18 b/min; TIDAL VOLUME 375 mL; TOTAL HEMOGLOBIN 7.9 G/dl (13.5-17.5)
[2024-07-07] MEDS: VANCOMYCIN LEVEL IV ONE (07:30)
[2024-07-07] MEDS: TESTOSTERONE 1% TOP SCH (08:00)
[2024-07-07] MEDS: pantoprazole 40MG/NS 100ML BAG 100 ML IV SCH (09:41)
[2024-07-07] MEDS ORDERED: BUPRENORPHINE HCL 4 MG PO SCH (11:24)
[2024-07-07] MEDS ORDERED: BUPRENORPHINE HCL PO SCH (11:35)
[2024-07-07] MEDS ORDERED: [UNRECOGNIZED DRUG - REMARK] PO SCH (11:52)
[2024-07-07] MEDS: acetaminophen 1,000mg/100ml IV 100 ML IV ONE (11:59)
[2024-07-07] MEDS: oxyCODONE IR 5mg (immed. release) tablet NG SCH (12:00)
[2024-07-07] MEDS ORDERED: SUMAtriptan 25 MG tablet NG PRN (12:36)
[2024-07-07] MEDS: busPIRone 5mg tablet NG SCH (13:00)
[2024-07-07] MEDS: POTASSIUM CHLORIDE 20 MEQ/15 ML oral solution NG PRN (13:46)
[2024-07-07] MEDS: BUPRENORPHINE HCL NG SCH (16:00)
[2024-07-07] MEDS: VANCOmycin 1250MG/NS 250ml Bag 250 ML IV SCH (16:00)
[2024-07-07] MEDS: metoprolol tartrate 25mg tablet NG SCH (20:00)
[2024-07-07] MEDS: ESCITALOPRAM 10 mg tablet 10 MG TABLET NG SCH (20:03)
[2024-07-07] MEDS: ARGININE/GLUTAMINE/CALCIUM BMB (JUVEN 19.3GM PKT) 1 EACH POWD.PACK NG SCH (20:03)
[2024-07-07] MEDS: risperiDONE 0.5mg tablet NG SCH (20:03)
[2024-07-07] MEDS: pregabalin 75mg capsule NG SCH (20:04)
[2024-07-07] MEDS: OLANZAPINE 5 MG TABLET NG SCH (20:04)
[2024-07-07] MEDS: mirtazapine 15mg tablet NG SCH (20:04)
[2024-07-07] MEDS: baclofen 10mg tablet NG SCH (20:05)
[2024-07-08] VITALS (40 sets, daily range): BP systolic 81–121; BP diastolic 50–85; PULSE 71–125; RESP 15–39; O2SAT 88–98
[2024-07-08 01:09] LABS: BASOPHILS % (AUTO) 0.5 % (0-1); EOSINOPHILS # (AUTO) 0.1 X10'3 (0-0.9); HEMATOCRIT 23.7 % (42.0-52.0); HEMOGLOBIN 7.7 g/dl (14.0-17.9); LYMPHOCYTES # (AUTO) 0.8 X10'3 (1.1-4.8); LYMPHOCYTES % (AUTO) 14.8 % (21-51); MEAN CORPUSCULAR HEMOGLOBIN 30.2 PG (27.0-31.0); MEAN CORPUSCULAR HGB CONC 32.5 g/dL (33.0-36.5); MEAN CORPUSCULAR VOLUME 92.9 FL (78-98); MEAN PLATELET VOLUME 7.6 FL (7.4-10.4); MONOCYTES # (AUTO) 0.4 X10'3 (0-0.9); MONOCYTES % (AUTO) 6.9 % (2-12); NEUTROPHILS # (AUTO) 4.3 X10'3 (1.8-7.7); NEUTROPHILS % (AUTO) 76.8 % (42-75); PLATELET COUNT 244 X10'3 (140-440); RED BLOOD COUNT 2.55 X10'6 (4.70-6.10); RED CELL DISTRIBUTION WIDTH 16.5 % (11.5-14.5); WHITE BLOOD COUNT 5.5 X10'3 (4.5-11.0)
[2024-07-08 01:30] LABS: ALANINE AMINOTRANSFERASE 11 U/L (12-78); ALBUMIN 1.9 G/DL (3.4-5.0); ALBUMIN/GLOBULIN RATIO 0.5 (1.1-1.5); ALKALINE PHOSPHATASE 121 IU/L (46-116); ANION GAP -1 (8-16); ASPARTATE AMINO TRANSFERASE 11 U/L (10-37); BILIRUBIN,TOTAL 0.3 MG/DL (0.1-1.0); BLOOD UREA NITROGEN 12 MG/DL (7-18); BUN/CREATININE RATIO 36.4 (10.0-20.0); CALCIUM 8.9 MG/DL (8.5-10.1); CHLORIDE 107 MMOL/L (99-107); CREATININE 0.33 MG/DL (0.60-1.10); GLUCOSE 110 MG/DL (70-104); MAGNESIUM 1.8 MG/DL (1.5-2.4); PHOSPHORUS 1.9 MG/DL (2.3-4.5); POTASSIUM 3.6 MMOL/L (3.5-5.1); SODIUM 144 MMOL/L (135-145); TOTAL CARBON DIOXIDE 37.8 MMOL/L (24-32); TOTAL PROTEIN 6.1 G/DL (6.4-8.2); eCRCL 263 ML/MIN; eGFR > 90 ML/MIN
[2024-07-08 01:58] LABS: APTT 32 SECONDS (22-32)
[2024-07-08 02:03] LABS: PROTHROMBIN TIME 10.9 SECONDS (9.0-12.0)
[2024-07-08 04:30] LABS: ABG BASE EXCESS 9.6 mmol/L (-2.0-3.0); ABG HCO3 35.5 mmol/L (21.0-28.0); ABG OXYGEN SATURATION 95.1 % (94.0-98.0); ABG PCO2 (T) 58.9 mmHg (35.0-48.0); ABG PH (T) 7.402 (7.350-7.450); ABG PO2 (T) 82.8 mmHg (83.0-108.0); ALLEN'S TEST Modified; FCOHb 0.5 % (0.5-1.5); FHHb 4.9 % (0.0-5.0); FMetHb 0.3 % (0.0-1.5); FO2Hb 94.3 % (94.0-98.0); MODE VENT - prvc; PATIENT TEMPERATURE 37.7; PEEP 5 cm H2O; RESPIRATORY RATE 18 b/min; TIDAL VOLUME 375 mL; TOTAL HEMOGLOBIN 9.4 G/dl (13.5-17.5)
[2024-07-08] MEDS: folic acid 1mg tablet NG SCH (08:15)
[2024-07-08] MEDS: fenofibrate 145mg tablet NG SCH (08:16)
[2024-07-08] MEDS: predniSONE 5mg tablet NG SCH (08:17)
[2024-07-08] MEDS: [UNRECOGNIZED DRUG - REMARK] NG SCH (08:19)
[2024-07-08] MEDS: acetaminophen 325mg/10.15ml oral unit dose solution NG PRN (14:40)
[2024-07-08] MEDS: VANCOMYCIN/WATER FOR INJ (PEG) 1.25GM/250 ML IVPB IV SCH (16:04)
[2024-07-08] MEDS: VANCOMYCIN LEVEL IV ONE (16:07)
[2024-07-08] MEDS: midodrine 5mg tablet PO SCH (19:39)
[2024-07-08] MEDS: lactobacillus rhamnosus 10,000 MMU CELLS/CAPSULE NG SCH (19:39)
[2024-07-09] VITALS (37 sets, daily range): BP systolic 84–118; BP diastolic 51–80; PULSE 70–136; RESP 15–40; O2SAT 90–99
[2024-07-09 03:20] LABS: BASOPHILS % (AUTO) 0.6 % (0-1); EOSINOPHILS # (AUTO) 0.1 X10'3 (0-0.9); EOSINOPHILS % (AUTO) 2.9 % (0-6); HEMOGLOBIN 8.9 g/dl (14.0-17.9); LYMPHOCYTES # (AUTO) 0.9 X10'3 (1.1-4.8); LYMPHOCYTES % (AUTO) 17.9 % (21-51); MEAN CORPUSCULAR HEMOGLOBIN 30.5 PG (27.0-31.0); MEAN CORPUSCULAR HGB CONC 32.8 g/dL (33.0-36.5); MEAN CORPUSCULAR VOLUME 92.9 FL (78-98); MEAN PLATELET VOLUME 7.4 FL (7.4-10.4); MONOCYTES # (AUTO) 0.5 X10'3 (0-0.9); MONOCYTES % (AUTO) 9.3 % (2-12); NEUTROPHILS # (AUTO) 3.6 X10'3 (1.8-7.7); NEUTROPHILS % (AUTO) 69.3 % (42-75); PLATELET COUNT 285 X10'3 (140-440); RED CELL DISTRIBUTION WIDTH 16.5 % (11.5-14.5); WHITE BLOOD COUNT 5.2 X10'3 (4.5-11.0)
[2024-07-09 03:34] LABS: APTT 30 SECONDS (22-32); INR 1.1 INR; PROTHROMBIN TIME 11.1 SECONDS (9.0-12.0)
[2024-07-09 03:36] LABS: ALANINE AMINOTRANSFERASE 10 U/L (12-78); ALBUMIN 2.1 G/DL (3.4-5.0); ALBUMIN/GLOBULIN RATIO 0.5 (1.1-1.5); ALKALINE PHOSPHATASE 116 IU/L (46-116); ANION GAP -1 (8-16); ASPARTATE AMINO TRANSFERASE 10 U/L (10-37); BILIRUBIN,TOTAL 0.3 MG/DL (0.1-1.0); BLOOD UREA NITROGEN 14 MG/DL (7-18); CALCIUM 9.4 MG/DL (8.5-10.1); CHLORIDE 103 MMOL/L (99-107); CREATININE 0.28 MG/DL (0.60-1.10); GLUCOSE 112 MG/DL (70-104); MAGNESIUM 1.6 MG/DL (1.5-2.4); PHOSPHORUS 2.4 MG/DL (2.3-4.5); POTASSIUM 3.8 MMOL/L (3.5-5.1); SODIUM 145 MMOL/L (135-145); TOTAL PROTEIN 6.6 G/DL (6.4-8.2); eCRCL 311 ML/MIN; eGFR > 90 ML/MIN
[2024-07-09 03:52] LABS: TOTAL CARBON DIOXIDE 42.7 MMOL/L (24-32)
[2024-07-09 04:19] LABS: ABG HCO3 40.1 mmol/L (21.0-28.0); ABG OXYGEN SATURATION 94.6 % (94.0-98.0); ABG PCO2 (T) 60.8 mmHg (35.0-48.0); ABG PH (T) 7.439 (7.350-7.450); ABG PO2 (T) 74.4 mmHg (83.0-108.0); ALLEN'S TEST Modified; FCOHb 0.8 % (0.5-1.5); FHHb 5.3 % (0.0-5.0); FMetHb 0.3 % (0.0-1.5); FO2Hb 93.6 % (94.0-98.0); MODE VENT - prvc; PATIENT TEMPERATURE 37.5; PEEP 5 cm H2O; RESPIRATORY RATE 15 b/min; TIDAL VOLUME 375 mL; TOTAL HEMOGLOBIN 10.4 G/dl (13.5-17.5)
[2024-07-09] MEDS: acetaZOLAMIDE IV 500mg inj IV SCH (08:25)
[2024-07-09] MEDS: albumin (human) 25% 100 ML IV solution IV ONE (10:48)
[2024-07-10] VITALS (39 sets, daily range): BP systolic 87–123; BP diastolic 51–80; PULSE 84–126; RESP 15–31; O2SAT 91–98
[2024-07-10 02:15] LABS: BASOPHILS % (AUTO) 0.3 % (0-1); EOSINOPHILS # (AUTO) 0.1 X10'3 (0-0.9); EOSINOPHILS % (AUTO) 1.7 % (0-6); HEMATOCRIT 28.2 % (42.0-52.0); HEMOGLOBIN 8.8 g/dl (14.0-17.9); LYMPHOCYTES # (AUTO) 0.9 X10'3 (1.1-4.8); LYMPHOCYTES % (AUTO) 18.6 % (21-51); MEAN CORPUSCULAR HEMOGLOBIN 29.2 PG (27.0-31.0); MEAN CORPUSCULAR HGB CONC 31.3 g/dL (33.0-36.5); MEAN CORPUSCULAR VOLUME 93.4 FL (78-98); MEAN PLATELET VOLUME 7.4 FL (7.4-10.4); MONOCYTES # (AUTO) 0.5 X10'3 (0-0.9); MONOCYTES % (AUTO) 10.6 % (2-12); NEUTROPHILS # (AUTO) 3.2 X10'3 (1.8-7.7); NEUTROPHILS % (AUTO) 68.8 % (42-75); PLATELET COUNT 264 X10'3 (140-440); RED BLOOD COUNT 3.01 X10'6 (4.70-6.10); RED CELL DISTRIBUTION WIDTH 16.8 % (11.5-14.5); WHITE BLOOD COUNT 4.7 X10'3 (4.5-11.0)
[2024-07-10 02:28] LABS: APTT 29 SECONDS (22-32); INR 1.1 INR; PROTHROMBIN TIME 11.3 SECONDS (9.0-12.0)
[2024-07-10 02:30] LABS: ALANINE AMINOTRANSFERASE 13 U/L (12-78); ALBUMIN/GLOBULIN RATIO 0.6 (1.1-1.5); ALKALINE PHOSPHATASE 113 IU/L (46-116); ANION GAP 3 (8-16); ASPARTATE AMINO TRANSFERASE 8 U/L (10-37); BILIRUBIN,TOTAL 0.3 MG/DL (0.1-1.0); BLOOD UREA NITROGEN 19 MG/DL (7-18); BUN/CREATININE RATIO 57.6 (10.0-20.0); CALCIUM 10.2 MG/DL (8.5-10.1); CHLORIDE 104 MMOL/L (99-107); CREATININE 0.33 MG/DL (0.60-1.10); GLUCOSE 115 MG/DL (70-104); MAGNESIUM 1.9 MG/DL (1.5-2.4); PHOSPHORUS 3.6 MG/DL (2.3-4.5); POTASSIUM 3.8 MMOL/L (3.5-5.1); PREALBUMIN 13.2 MG/DL (19-36); SODIUM 143 MMOL/L (135-145); TOTAL CARBON DIOXIDE 36.2 MMOL/L (24-32); TOTAL PROTEIN 7.9 G/DL (6.4-8.2); eCRCL 185 ML/MIN; eGFR > 90 ML/MIN
[2024-07-10] MEDS: acetaminophen 325mg/10.15ml oral unit dose solution NG PRN (09:15)
[2024-07-10] MEDS: quetiapine 100mg tablet PO SCH (20:29)
[2024-07-11] VITALS (40 sets, daily range): BP systolic 83–119; BP diastolic 51–86; PULSE 73–137; RESP 16–36; O2SAT 92–99
[2024-07-11 02:13] LABS: BASOPHILS % (AUTO) 0.7 % (0-1); EOSINOPHILS # (AUTO) 0.1 X10'3 (0-0.9); EOSINOPHILS % (AUTO) 2.4 % (0-6); HEMATOCRIT 27.2 % (42.0-52.0); HEMOGLOBIN 8.7 g/dl (14.0-17.9); LYMPHOCYTES # (AUTO) 1.1 X10'3 (1.1-4.8); LYMPHOCYTES % (AUTO) 25.6 % (21-51); MEAN CORPUSCULAR HEMOGLOBIN 29.5 PG (27.0-31.0); MEAN CORPUSCULAR HGB CONC 32.1 g/dL (33.0-36.5); MEAN CORPUSCULAR VOLUME 91.9 FL (78-98); MEAN PLATELET VOLUME 7.8 FL (7.4-10.4); MONOCYTES # (AUTO) 0.5 X10'3 (0-0.9); MONOCYTES % (AUTO) 12.3 % (2-12); NEUTROPHILS # (AUTO) 2.4 X10'3 (1.8-7.7); PLATELET COUNT 236 X10'3 (140-440); RED BLOOD COUNT 2.96 X10'6 (4.70-6.10); RED CELL DISTRIBUTION WIDTH 16.4 % (11.5-14.5); WHITE BLOOD COUNT 4.1 X10'3 (4.5-11.0)
[2024-07-11 02:24] LABS: APTT 29 SECONDS (22-32); INR 1.1 INR
[2024-07-11 02:28] LABS: ALANINE AMINOTRANSFERASE 15 U/L (12-78); ALBUMIN 2.9 G/DL (3.4-5.0); ALBUMIN/GLOBULIN RATIO 0.6 (1.1-1.5); ALKALINE PHOSPHATASE 120 IU/L (46-116); ANION GAP 2 (8-16); ASPARTATE AMINO TRANSFERASE 12 U/L (10-37); BILIRUBIN,TOTAL 0.3 MG/DL (0.1-1.0); BLOOD UREA NITROGEN 28 MG/DL (7-18); CALCIUM 9.7 MG/DL (8.5-10.1); CHLORIDE 101 MMOL/L (99-107); GLUCOSE 103 MG/DL (70-104); POTASSIUM 4.2 MMOL/L (3.5-5.1); SODIUM 142 MMOL/L (135-145); TOTAL CARBON DIOXIDE 38.7 MMOL/L (24-32); TOTAL PROTEIN 7.5 G/DL (6.4-8.2); eCRCL 154 ML/MIN; eGFR > 90 ML/MIN
[2024-07-11 07:52] LABS: ABG BASE EXCESS 12.9 mmol/L (-2.0-3.0); ABG HCO3 39.1 mmol/L (21.0-28.0); ABG OXYGEN SATURATION 94.4 % (94.0-98.0); ABG PCO2 (T) 62.6 mmHg (35.0-48.0); ABG PH (T) 7.418 (7.350-7.450); ABG PO2 (T) 77.2 mmHg (83.0-108.0); ALLEN'S TEST POSITIVE; FCOHb 0.3 % (0.5-1.5); FHHb 5.6 % (0.0-5.0); FMetHb 0.3 % (0.0-1.5); FO2Hb 93.8 % (94.0-98.0); MODE VENT - PRVC; PATIENT TEMPERATURE 38.2; PEEP 5 cm H2O; RESPIRATORY RATE 16 b/min; TIDAL VOLUME 450 mL; TOTAL HEMOGLOBIN 10.5 G/dl (13.5-17.5)
[2024-07-11] MEDS ORDERED: fentaNYL/PF 50MCG/1 ML 2ML syringe IV PRN (10:05)
[2024-07-11] MEDS: FENTANYL-0.9 % NACL/PF 100 ML IV SCH (10:17)
[2024-07-11] MEDS: acetaZOLAMIDE IV 500mg inj IV SCH (20:20)
[2024-07-11] MEDS: acyclovir 200 MG capsule PO SCH (23:25)
[2024-07-12] VITALS (40 sets, daily range): BP systolic 81–138; BP diastolic 52–97; PULSE 76–146; RESP 12–33; O2SAT 91–100
[2024-07-12 03:41] LABS: BASOPHILS % (AUTO) 0.6 % (0-1); EOSINOPHILS # (AUTO) 0.1 X10'3 (0-0.9); EOSINOPHILS % (AUTO) 2.6 % (0-6); HEMATOCRIT 28.1 % (42.0-52.0); HEMOGLOBIN 9.1 g/dl (14.0-17.9); LYMPHOCYTES # (AUTO) 1.1 X10'3 (1.1-4.8); LYMPHOCYTES % (AUTO) 22.6 % (21-51); MEAN CORPUSCULAR HEMOGLOBIN 29.8 PG (27.0-31.0); MEAN CORPUSCULAR HGB CONC 32.5 g/dL (33.0-36.5); MEAN CORPUSCULAR VOLUME 91.7 FL (78-98); MEAN PLATELET VOLUME 8.2 FL (7.4-10.4); MONOCYTES # (AUTO) 0.6 X10'3 (0-0.9); MONOCYTES % (AUTO) 12.2 % (2-12); NEUTROPHILS # (AUTO) 3.1 X10'3 (1.8-7.7); PLATELET COUNT 280 X10'3 (140-440); RED BLOOD COUNT 3.07 X10'6 (4.70-6.10); RED CELL DISTRIBUTION WIDTH 16.6 % (11.5-14.5)
[2024-07-12 03:53] LABS: APTT 26 SECONDS (22-32); PROTHROMBIN TIME 10.9 SECONDS (9.0-12.0)
[2024-07-12 03:57] LABS: ALANINE AMINOTRANSFERASE 18 U/L (12-78); ALBUMIN/GLOBULIN RATIO 0.6 (1.1-1.5); ALKALINE PHOSPHATASE 130 IU/L (46-116); ANION GAP 2 (8-16); ASPARTATE AMINO TRANSFERASE 19 U/L (10-37); BILIRUBIN,TOTAL 0.2 MG/DL (0.1-1.0); BLOOD UREA NITROGEN 19 MG/DL (7-18); BUN/CREATININE RATIO 45.2 (10.0-20.0); CALCIUM 9.7 MG/DL (8.5-10.1); CHLORIDE 98 MMOL/L (99-107); CREATININE 0.42 MG/DL (0.60-1.10); GLUCOSE 135 MG/DL (70-104); PHOSPHORUS 2.5 MG/DL (2.3-4.5); POTASSIUM 3.4 MMOL/L (3.5-5.1); SODIUM 137 MMOL/L (135-145); TOTAL CARBON DIOXIDE 37.5 MMOL/L (24-32); eCRCL 149 ML/MIN; eGFR > 90 ML/MIN
[2024-07-12] MEDS: POTASSIUM CHLORIDE 20 MEQ/15 ML oral solution NG PRN (07:58)
[2024-07-12] MEDS: AVIBACTAM IV SCH (16:36)
[2024-07-12] MEDS: NORMAL SALINE IV SCH (16:36)
[2024-07-12] MEDS: CEFTAZIDIME IV SCH (16:36)
[2024-07-13] VITALS (43 sets, daily range): BP systolic 85–129; BP diastolic 51–82; PULSE 77–141; RESP 14–40; O2SAT 91–98
[2024-07-13 04:03] LABS: BASOPHILS % (AUTO) 0.8 % (0-1); EOSINOPHILS # (AUTO) 0.2 X10'3 (0-0.9); EOSINOPHILS % (AUTO) 3.5 % (0-6); HEMATOCRIT 28.5 % (42.0-52.0); HEMOGLOBIN 9.3 g/dl (14.0-17.9); LYMPHOCYTES # (AUTO) 1.4 X10'3 (1.1-4.8); LYMPHOCYTES % (AUTO) 30.3 % (21-51); MEAN CORPUSCULAR HGB CONC 32.6 g/dL (33.0-36.5); MEAN CORPUSCULAR VOLUME 92.2 FL (78-98); MEAN PLATELET VOLUME 8.2 FL (7.4-10.4); MONOCYTES # (AUTO) 0.6 X10'3 (0-0.9); MONOCYTES % (AUTO) 12.2 % (2-12); NEUTROPHILS # (AUTO) 2.5 X10'3 (1.8-7.7); NEUTROPHILS % (AUTO) 53.2 % (42-75); PLATELET COUNT 289 X10'3 (140-440); RED BLOOD COUNT 3.09 X10'6 (4.70-6.10); RED CELL DISTRIBUTION WIDTH 16.3 % (11.5-14.5); WHITE BLOOD COUNT 4.6 X10'3 (4.5-11.0)
[2024-07-13 04:18] LABS: ALANINE AMINOTRANSFERASE 17 U/L (12-78); ALBUMIN/GLOBULIN RATIO 0.6 (1.1-1.5); ALKALINE PHOSPHATASE 149 IU/L (46-116); ANION GAP 1 (8-16); ASPARTATE AMINO TRANSFERASE 15 U/L (10-37); BILIRUBIN,TOTAL 0.2 MG/DL (0.1-1.0); BLOOD UREA NITROGEN 30 MG/DL (7-18); BUN/CREATININE RATIO 66.7 (10.0-20.0); CALCIUM 9.5 MG/DL (8.5-10.1); CHLORIDE 100 MMOL/L (99-107); CREATININE 0.45 MG/DL (0.60-1.10); GLUCOSE 106 MG/DL (70-104); MAGNESIUM 2.2 MG/DL (1.5-2.4); PHOSPHORUS 3.4 MG/DL (2.3-4.5); SODIUM 137 MMOL/L (135-145); TOTAL CARBON DIOXIDE 36.1 MMOL/L (24-32); TOTAL PROTEIN 8.2 G/DL (6.4-8.2); eCRCL 120 ML/MIN; eGFR > 90 ML/MIN
[2024-07-13 04:28] LABS: APTT 26 SECONDS (22-32); PROTHROMBIN TIME 10.7 SECONDS (9.0-12.0)
[2024-07-13 09:05] LABS: FREE T4 (FREE THYROXINE) 1.03 NG/DL (0.73-1.40); THYROID STIMULATING HORMONE 1.97 ulU/ml (0.34-4.50)
[2024-07-13] MEDS: OLANZAPINE 5 MG TABLET NG SCH (19:54)
[2024-07-13] MEDS: midodrine 5mg tablet NG SCH (19:54)
[2024-07-14] VITALS (39 sets, daily range): BP systolic 72–119; BP diastolic 46–77; PULSE 95–146; RESP 14–32; O2SAT 92–100
[2024-07-14 02:47] LABS: BASOPHILS % (AUTO) 0.3 % (0-1); EOSINOPHILS % (AUTO) 0.5 % (0-6); HEMATOCRIT 30.5 % (42.0-52.0); HEMOGLOBIN 9.8 g/dl (14.0-17.9); LYMPHOCYTES # (AUTO) 1.1 X10'3 (1.1-4.8); LYMPHOCYTES % (AUTO) 12.8 % (21-51); MEAN CORPUSCULAR HEMOGLOBIN 29.6 PG (27.0-31.0); MEAN CORPUSCULAR HGB CONC 32.3 g/dL (33.0-36.5); MEAN CORPUSCULAR VOLUME 91.7 FL (78-98); MEAN PLATELET VOLUME 7.9 FL (7.4-10.4); MONOCYTES # (AUTO) 0.7 X10'3 (0-0.9); MONOCYTES % (AUTO) 8.2 % (2-12); NEUTROPHILS # (AUTO) 6.9 X10'3 (1.8-7.7); NEUTROPHILS % (AUTO) 78.2 % (42-75); PLATELET COUNT 308 X10'3 (140-440); RED BLOOD COUNT 3.32 X10'6 (4.70-6.10); RED CELL DISTRIBUTION WIDTH 16.4 % (11.5-14.5); WHITE BLOOD COUNT 8.8 X10'3 (4.5-11.0)
[2024-07-14 03:01] LABS: APTT 28 SECONDS (22-32); INR 1.1 INR; PROTHROMBIN TIME 11.1 SECONDS (9.0-12.0)
[2024-07-14 03:03] LABS: ALANINE AMINOTRANSFERASE 22 U/L (12-78); ALBUMIN 3.2 G/DL (3.4-5.0); ALBUMIN/GLOBULIN RATIO 0.6 (1.1-1.5); ALKALINE PHOSPHATASE 163 IU/L (46-116); ANION GAP -1 (8-16); ASPARTATE AMINO TRANSFERASE 20 U/L (10-37); BILIRUBIN,TOTAL 0.2 MG/DL (0.1-1.0); BLOOD UREA NITROGEN 32 MG/DL (7-18); BUN/CREATININE RATIO 65.3 (10.0-20.0); CALCIUM 9.6 MG/DL (8.5-10.1); CHLORIDE 101 MMOL/L (99-107); CREATININE 0.49 MG/DL (0.60-1.10); GLUCOSE 127 MG/DL (70-104); MAGNESIUM 2.2 MG/DL (1.5-2.4); PHOSPHORUS 3.4 MG/DL (2.3-4.5); POTASSIUM 3.5 MMOL/L (3.5-5.1); SODIUM 137 MMOL/L (135-145); TOTAL CARBON DIOXIDE 36.9 MMOL/L (24-32); TOTAL PROTEIN 8.8 G/DL (6.4-8.2); eCRCL 112 ML/MIN; eGFR > 90 ML/MIN
[2024-07-14] MEDS: pantoprazole 40 MG vial IV SCH (08:00)
[2024-07-14] MEDS ORDERED: OLANZAPINE 5 MG TABLET NG SCH (10:42)
[2024-07-14] MEDS: OLANZAPINE 5 MG TABLET NG SCH (11:35)
[2024-07-14] MEDS: oxyCODONE IR 5mg (immed. release) tablet PO SCH (12:44)
[2024-07-14] MEDS: OLANZAPINE 5 MG TABLET PO ONE (13:34)
[2024-07-14] MEDS: LORazepam 2 mg/ml vial IV ONE ×2 (16:15→17:18)
[2024-07-14] MEDS: oxyCODONE IR 5mg (immed. release) tablet NG SCH (16:16)
[2024-07-15] VITALS (36 sets, daily range): BP systolic 86–120; BP diastolic 56–86; PULSE 109–147; RESP 15–32; O2SAT 90–98
[2024-07-15 02:53] LABS: BASOPHILS % (AUTO) 0.4 % (0-1); EOSINOPHILS % (AUTO) 0.5 % (0-6); HEMATOCRIT 29.7 % (42.0-52.0); HEMOGLOBIN 9.7 g/dl (14.0-17.9); LYMPHOCYTES # (AUTO) 1.3 X10'3 (1.1-4.8); LYMPHOCYTES % (AUTO) 14.6 % (21-51); MEAN CORPUSCULAR HEMOGLOBIN 30.1 PG (27.0-31.0); MEAN CORPUSCULAR HGB CONC 32.8 g/dL (33.0-36.5); MEAN CORPUSCULAR VOLUME 91.8 FL (78-98); MONOCYTES # (AUTO) 0.7 X10'3 (0-0.9); MONOCYTES % (AUTO) 7.7 % (2-12); NEUTROPHILS # (AUTO) 6.9 X10'3 (1.8-7.7); NEUTROPHILS % (AUTO) 76.8 % (42-75); PLATELET COUNT 308 X10'3 (140-440); RED BLOOD COUNT 3.23 X10'6 (4.70-6.10); RED CELL DISTRIBUTION WIDTH 16.6 % (11.5-14.5); WHITE BLOOD COUNT 8.9 X10'3 (4.5-11.0)
[2024-07-15 03:07] LABS: APTT 25 SECONDS (22-32); INR 1.1 INR; PROTHROMBIN TIME 11.2 SECONDS (9.0-12.0)
[2024-07-15 03:13] LABS: ALANINE AMINOTRANSFERASE 22 U/L (12-78); ALBUMIN/GLOBULIN RATIO 0.6 (1.1-1.5); ALKALINE PHOSPHATASE 157 IU/L (46-116); ANION GAP 5 (8-16); ASPARTATE AMINO TRANSFERASE 16 U/L (10-37); BILIRUBIN,TOTAL 0.3 MG/DL (0.1-1.0); BLOOD UREA NITROGEN 32 MG/DL (7-18); BUN/CREATININE RATIO 86.5 (10.0-20.0); CALCIUM 10.2 MG/DL (8.5-10.1); CHLORIDE 102 MMOL/L (99-107); CREATININE 0.37 MG/DL (0.60-1.10); GLUCOSE 130 MG/DL (70-104); MAGNESIUM 2.3 MG/DL (1.5-2.4); PHOSPHORUS 2.7 MG/DL (2.3-4.5); POTASSIUM 3.7 MMOL/L (3.5-5.1); SODIUM 143 MMOL/L (135-145); TOTAL CARBON DIOXIDE 36.1 MMOL/L (24-32); TOTAL PROTEIN 8.4 G/DL (6.4-8.2); eCRCL 148 ML/MIN; eGFR > 90 ML/MIN
[2024-07-15 03:24] LABS: ABG BASE EXCESS 12.9 mmol/L (-2.0-3.0); ABG HCO3 40.4 mmol/L (21.0-28.0); ABG OXYGEN SATURATION 91.6 % (94.0-98.0); ABG PCO2 (T) 68.2 mmHg (35.0-48.0); ABG PO2 (T) 62.2 mmHg (83.0-108.0); ALLEN'S TEST POSITIVE; FCOHb 0.5 % (0.5-1.5); FHHb 8.3 % (0.0-5.0); FMetHb 0.3 % (0.0-1.5); FO2Hb 90.9 % (94.0-98.0); MODE VENT - AC PRVC; PATIENT TEMPERATURE 36.9; PEEP 5 cm H2O; RESPIRATORY RATE 16 b/min; TIDAL VOLUME 400 mL; TOTAL HEMOGLOBIN 11.4 G/dl (13.5-17.5)
[2024-07-16] VITALS (34 sets, daily range): BP systolic 86–122; BP diastolic 38–78; PULSE 114–145; RESP 16–28; O2SAT 91–98
[2024-07-16 02:32] LABS: BASOPHILS % (AUTO) 0.2 % (0-1); EOSINOPHILS % (AUTO) 0.1 % (0-6); HEMATOCRIT 30.9 % (42.0-52.0); LYMPHOCYTES # (AUTO) 1.4 X10'3 (1.1-4.8); MEAN CORPUSCULAR HEMOGLOBIN 29.8 PG (27.0-31.0); MEAN CORPUSCULAR HGB CONC 32.4 g/dL (33.0-36.5); MEAN CORPUSCULAR VOLUME 92.1 FL (78-98); MEAN PLATELET VOLUME 8.3 FL (7.4-10.4); MONOCYTES # (AUTO) 0.8 X10'3 (0-0.9); MONOCYTES % (AUTO) 7.2 % (2-12); NEUTROPHILS # (AUTO) 8.6 X10'3 (1.8-7.7); NEUTROPHILS % (AUTO) 79.5 % (42-75); PLATELET COUNT 356 X10'3 (140-440); RED BLOOD COUNT 3.36 X10'6 (4.70-6.10); RED CELL DISTRIBUTION WIDTH 16.8 % (11.5-14.5); WHITE BLOOD COUNT 10.8 X10'3 (4.5-11.0)
[2024-07-16 02:49] LABS: APTT 27 SECONDS (22-32); INR 1.1 INR; PROTHROMBIN TIME 11.3 SECONDS (9.0-12.0)
[2024-07-16 03:06] LABS: ALANINE AMINOTRANSFERASE 31 U/L (12-78); ALBUMIN/GLOBULIN RATIO 0.5 (1.1-1.5); ALKALINE PHOSPHATASE 196 IU/L (46-116); ANION GAP 0 (8-16); ASPARTATE AMINO TRANSFERASE 26 U/L (10-37); BILIRUBIN,TOTAL 0.3 MG/DL (0.1-1.0); BLOOD UREA NITROGEN 32 MG/DL (7-18); CALCIUM 10.2 MG/DL (8.5-10.1); CHLORIDE 101 MMOL/L (99-107); GLUCOSE 142 MG/DL (70-104); MAGNESIUM 2.1 MG/DL (1.5-2.4); PHOSPHORUS 2.5 MG/DL (2.3-4.5); POTASSIUM 3.9 MMOL/L (3.5-5.1); SODIUM 144 MMOL/L (135-145); TOTAL PROTEIN 8.6 G/DL (6.4-8.2); eCRCL 137 ML/MIN; eGFR > 90 ML/MIN
[2024-07-16 03:09] LABS: TOTAL CARBON DIOXIDE 43.1 MMOL/L (24-32)
[2024-07-16 03:43] LABS: ABG BASE EXCESS 15.8 mmol/L (-2.0-3.0); ABG HCO3 43.4 mmol/L (21.0-28.0); ABG OXYGEN SATURATION 93.8 % (94.0-98.0); ABG PCO2 (T) 71.9 mmHg (35.0-48.0); ABG PO2 (T) 72.4 mmHg (83.0-108.0); ALLEN'S TEST Modified; FCOHb 0.4 % (0.5-1.5); FHHb 6.2 % (0.0-5.0); FMetHb 0.3 % (0.0-1.5); FO2Hb 93.1 % (94.0-98.0); MODE ac/prvc; PATIENT TEMPERATURE 37.4; PEEP 5 cm H2O; RESPIRATORY RATE 16 b/min; TIDAL VOLUME 400 mL; TOTAL HEMOGLOBIN 11.1 G/dl (13.5-17.5)
[2024-07-16] MEDS: LORazepam 2 mg/ml vial IV ONE (07:18)
[2024-07-16] MEDS: normal saline 1000ml 1,000 ML IV SCH (07:51)
[2024-07-16] MEDS: acetaZOLAMIDE IV 500mg inj IV SCH (09:00)
[2024-07-16] MEDS: LORazepam 2 mg/ml vial IV PRN (15:06)
[2024-07-17] VITALS (18 sets, daily range): BP systolic 87–118; BP diastolic 46–83; PULSE 91–138; RESP 14–34; O2SAT 91–97
[2024-07-17 02:58] LABS: BASOPHILS % (AUTO) 0.7 % (0-1); EOSINOPHILS % (AUTO) 0.3 % (0-6); HEMATOCRIT 29.2 % (42.0-52.0); HEMOGLOBIN 9.4 g/dl (14.0-17.9); LYMPHOCYTES # (AUTO) 1.5 X10'3 (1.1-4.8); LYMPHOCYTES % (AUTO) 20.4 % (21-51); MEAN CORPUSCULAR HEMOGLOBIN 29.9 PG (27.0-31.0); MEAN CORPUSCULAR HGB CONC 32.1 g/dL (33.0-36.5); MEAN CORPUSCULAR VOLUME 93.1 FL (78-98); MONOCYTES # (AUTO) 0.7 X10'3 (0-0.9); MONOCYTES % (AUTO) 9.6 % (2-12); NEUTROPHILS # (AUTO) 4.9 X10'3 (1.8-7.7); PLATELET COUNT 336 X10'3 (140-440); RED BLOOD COUNT 3.14 X10'6 (4.70-6.10); RED CELL DISTRIBUTION WIDTH 17.3 % (11.5-14.5); WHITE BLOOD COUNT 7.1 X10'3 (4.5-11.0)
[2024-07-17 03:18] LABS: ALANINE AMINOTRANSFERASE 27 U/L (12-78); ALBUMIN 2.8 G/DL (3.4-5.0); ALBUMIN/GLOBULIN RATIO 0.5 (1.1-1.5); ALKALINE PHOSPHATASE 177 IU/L (46-116); ANION GAP 2 (8-16); ASPARTATE AMINO TRANSFERASE 21 U/L (10-37); BILIRUBIN,TOTAL 0.2 MG/DL (0.1-1.0); BLOOD UREA NITROGEN 31 MG/DL (7-18); BUN/CREATININE RATIO 72.1 (10.0-20.0); CALCIUM 10.2 MG/DL (8.5-10.1); CHLORIDE 104 MMOL/L (99-107); CREATININE 0.43 MG/DL (0.60-1.10); GLUCOSE 131 MG/DL (70-104); MAGNESIUM 2.1 MG/DL (1.5-2.4); PHOSPHORUS 3.4 MG/DL (2.3-4.5); POTASSIUM 3.7 MMOL/L (3.5-5.1); PREALBUMIN 19.5 MG/DL (19-36); SODIUM 146 MMOL/L (135-145); TOTAL CARBON DIOXIDE 39.7 MMOL/L (24-32); TOTAL PROTEIN 8.2 G/DL (6.4-8.2); eCRCL 179 ML/MIN; eGFR > 90 ML/MIN
[2024-07-17 03:29] LABS: APTT 25 SECONDS (22-32); INR 1.1 INR
[2024-07-17 05:10] LABS: ABG BASE EXCESS 11.7 mmol/L (-2.0-3.0); ABG HCO3 34.8 mmol/L (21.0-28.0); ABG OXYGEN SATURATION 98.2 % (94.0-98.0); ABG PCO2 (T) 39.9 mmHg (35.0-48.0); ABG PH (T) 7.559 (7.350-7.450); ABG PO2 (T) 100.8 mmHg (83.0-108.0); ALLEN'S TEST Modified; FCOHb 0.2 % (0.5-1.5); FHHb 1.8 % (0.0-5.0); FMetHb 0.3 % (0.0-1.5); FO2Hb 97.7 % (94.0-98.0); MODE prvc; PATIENT TEMPERATURE 37.1; PEEP 5 cm H2O; RESPIRATORY RATE 16 b/min; TIDAL VOLUME 400 mL; TOTAL HEMOGLOBIN 10.2 G/dl (13.5-17.5)
== END 2024-07-17 14:14 | disposition home health service (06) | DRG 870 ==
LOC: ER 05:15 → ED HOLD 11:36 → CICU 2S 15:45
PROVIDERS: ADMIT Internal Medicine Critical Care Medicine; ATTEND Internal Medicine Critical Care Medicine
PROC: 5A1955Z Respiratory Ventilation, Greater than 96 Consecutive Hours (ICD-10-PCS; principal; 2024-07-05)
PROC: B32T1ZZ Computerized Tomography (CT Scan) of Left Pulmonary Artery using Low Osmolar Contrast (ICD-10-PCS; 2024-07-05)
PROC: B3201ZZ Computerized Tomography (CT Scan) of Thoracic Aorta using Low Osmolar Contrast (ICD-10-PCS; 2024-07-05)
PROC: B32S1ZZ Computerized Tomography (CT Scan) of Right Pulmonary Artery using Low Osmolar Contrast (ICD-10-PCS; 2024-07-05)
PROC: 30233N1 Transfusion of Nonautologous Red Blood Cells into Peripheral Vein, Percutaneous Approach (ICD-10-PCS; 2024-07-07)
DX: A41.52 Sepsis due to Pseudomonas (principal); J15.1 Pneumonia due to Pseudomonas; J96.21 Acute and chronic respiratory failure with hypoxia; R65.21 Severe sepsis with septic shock; N39.0 Urinary tract infection, site not specified; Z16.24 Resistance to multiple antibiotics; E46 Unspecified protein-calorie malnutrition; D84.9 Immunodeficiency, unspecified; Z68.1 Body mass index [BMI] 19.9 or less, adult; Z20.822 Contact with and (suspected) exposure to COVID-19; F41.9 Anxiety disorder, unspecified; Z88.2 Allergy status to sulfonamides; Z88.1 Allergy status to other antibiotic agents; Z88.8 Allergy status to other drugs, medicaments and biological substances; Z93.0 Tracheostomy status; Z79.899 Other long term (current) drug therapy; Z93.3 Colostomy status
CPT/HCPCS: 36415; 36430; 36600; 71045; 71275; 80053; 80202; 81001; 82803; 82948; 83605; 83735; 83880; 84100; 84134; 84145; 84439; 84443; 84484; 85018; 85025; 85379; 85610; 85730; 86885; 86900; 86901; 86920; 86945; 87040; 87070; 87077; 87081; 87088; 87186; 87502; 87503; 87533; 87811; 92508; 92616; 93005; 93306; 94002; 94003; 94640; 94760; 94799; 99291; A4421; A4623; A4649; A5200; A6154; A6196; A6209; A6212; A6213; A6223; A6250; A6258; A6402; A6446; A6449; A6590; A7015; A7521; C1758; G0378; J0131; J0713; J1120; J1644; J2060; J2185; J2270; J2405; J2470; J2997; J3010; J3260; J3370; J3372; J3490; J7030; J7040; J7120; J7512; P9016; P9047; Q9967